=== PATIENT | female | born 1960 | race Caucasian/White ===

== ENCOUNTER 2020-12-27 11:49 | Emergency (ER) | payer MEDICARE ==
[~2020-12-27] VITALS: Ht 149.9 cm; Wt 58.0 kg
[2020-12-27 11:56] VITALS: BP 150/111
--- NOTE | 2020-12-27 12:14 | NUR ---
PT BROUGHT BACK TO ROOM FROM TRIAGE. PT COMPLAING OF NOSEBLEEDS FOR 5 DAYS. PT CURRENTLY DOES NOT HAVE ANY BLEEDING. PT STATED THAT SHE WENT TO HER PCP AND HE PRESCRIBED HER A "COOLING MIST" THAT MADE THE BLEEDING WORSE.
--- NOTE | 2020-12-27 12:32 | NUR ---
DISCHARGE INSTRUCTIONS REVIEWED WITH PT. ALL QUESTIONS ANSWERED AT THIS TIME
== END 2020-12-27 12:34 | disposition home or self-care (01) ==
LOC: ED 12:27
DX: L03.211 Cellulitis of face (principal); R04.0 Epistaxis; F17.210 Nicotine dependence, cigarettes, uncomplicated
CPT/HCPCS: 99283; 99406